=== PATIENT | female | born 1980 | race African-American/Black ===

== ENCOUNTER 2016-12-25 18:35 | Inpatient (IN) | payer OTHER ==
[~2016-12-25] VITALS: Ht 160 cm; Wt 102.1 kg
[~2016-12-25 18:35] MED LIST: GEODON60 MG PO; GEODON80 MG PD; GEODON80 MG PO; LITHIUM CARBON300 M2 PO; LITHIUM CARBON300 MG PO; LITHIUM CARBON600 MG PD; LITHIUM CARBON600 MG PO; LITHOBID300 MG PO; ZIPRASIDONE HCL80 MG PO
[2016-12-25 19:31] LABS: ADD MIUA? YES; BILIRUBIN NEGATIVE; BLOOD NEGATIVE; COLOR YELLOW ((YELLOW)); GLUCOSE (STRIP) NEGATIVE; KETONES 5; LEUKOCYTES NEGATIVE; NITRITE NEGATIVE; PROTEIN (STRIP) >=500; UROBILINOGEN 0.2 MG/DL (0.2-1.0)
[2016-12-25 19:39] LABS: AMPHETAMINE NEGATIVE (500 ng/mL); BARBITURATES NEGATIVE (200 ng/mL); BENZODIAZEPINES NEGATIVE (150 ng/mL); COCAINE NEGATIVE (150 ng/mL); INTERNAL CONTROLS VALID? YES; METHADONE NEGATIVE (200 ng/mL); METHAMPHETAMINE NEGATIVE (500 ng/mL); OPIATES (MORPHINE) NEGATIVE (100 ng/mL); OXYCODONE NEGATIVE (100 ng/mL); PHENCYCLIDINE NEGATIVE (25 ng/mL); PROPOXYPHENE NEGATIVE (300 ng/mL); THC CANNABINOIDS NEGATIVE (50 ng/mL); TRICYCLIC ANTIDEPRESSANTS NEGATIVE (300 ng/mL)
[2016-12-25 20:20] LABS: BACTERIA NONE SEEN /HPF; EPITHELIAL CELLS 2+ /HPF; MUCUS 3+ /LPF; RED BLOOD CELLS 0-5 /HPF (0-5); UCUL ADDED? NO; WHITE BLOOD CELLS 0-5 /HPF (0-5)
[2016-12-25 22:09] LABS: EOSINOPHIL (%) 0.5 % (0-5); EOSINOPHIL COUNT 0.1 K/uL (0-0.3); HEMATOCRIT 39.7 % (36.0-46.0); IMMATURE GRANULOCYTE (%) 0.3 % (0.0-0.7); INSTRUMENT ABS NEUTROPHIL CT 6.2 K/uL; LYMPHOCYTE COUNT 2.6 K/uL (1.0-2.8); MCH 28.8 PG (29.0-34.0); MCV 87.3 FL (83-99); MEAN PLAT.VOLUME 10.9 uM^3 (9.5-12.4); MONOCYTE (%) 8.1 % (3-12); MONOCYTE COUNT 0.8 K/uL (0-0.8); NEUTROPHIL (%) 64.4 % (45-76); NEUTROPHIL COUNT 6.2 K/uL (1.8-6.4); PLATELET COUNT 280 K/uL (156-360); RBC DIS.WIDTH-CV 12.6 % (11.8-14.6); RBC DIS.WIDTH-SD 40.5 % (39-53); RED BLOOD COUNT 4.55 M/uL (3.80-5.20); WHITE BLOOD COUNT 9.7 K/uL (4.1-10.2)
[2016-12-25 22:18] LABS: CHLORIDE 107 mEq/L (99-109); POTASSIUM 3.6 mEq/L (3.7-5.4); SODIUM 140 mEq/L (136-147)
[2016-12-25 22:20] LABS: GLUCOSE 155 mg/dL (70-99)
[2016-12-25 22:21] LABS: ANION GAP 11 MEQ/L (2-14)
[2016-12-25 22:22] LABS: TOTAL BILIRUBIN 0.3 mg/dL (0.0-1.0)
[2016-12-25 22:23] LABS: SERUM ETHYL ALCOHOL < 10 mg/dL
[2016-12-25 22:24] LABS: ALKALINE PHOSPHATASE 65 IU/L (3-129); GFR ESTIMATE (CALCULATED) > 59 mL/min/
[2016-12-25 22:26] LABS: UREA NITROGEN (BUN) 14 mg/dL (9-23)
[2016-12-25 22:27] LABS: SALICYLATE < 5.0 MG/DL (15-30)
[2016-12-25 22:33] LABS: QUANTITATIVE HCG < 4.0 MIU/ML
[2016-12-26 05:55] VITALS: BP 134/88
[2016-12-26 08:01] VITALS: BP 133/67
[2016-12-26 15:49] VITALS: BP 157/80
[2016-12-26 19:15] VITALS: BP 127/76
[2016-12-27 07:34] VITALS: BP 142/74
[2016-12-27 15:36] VITALS: BP 129/75
== END 2016-12-27 18:34 | disposition short-term general hospital (02) | DRG 885 ==
LOC: EME 18:35 → EDOF 12-26 04:31 → 1WEST 12-26 04:31
PROVIDERS: Emergency Medicine
DX: F31.2 Bipolar disorder, current episode manic severe with psychotic features (principal); Z91.14 Patient's other noncompliance with medication regimen; E66.9 Obesity, unspecified; Z68.39 Body mass index [BMI] 39.0-39.9, adult; R47.81 Slurred speech
CPT/HCPCS: 80053; 81003; 84702; 85025; 90837; 99281; 99285; G0480; J1630; J2060; J7030

== ENCOUNTER 2017-01-05 20:01 | Inpatient (IN) | payer OTHER ==
[~2017-01-05] VITALS: Ht 180.3 cm; Wt 57.0 kg
[2017-01-05 21:01] LABS: HEMATOCRIT 42.7 % (36.0-46.0); MCH 28.9 PG (29.0-34.0); MCHC 32.8 G/DL (30.0-36.0); MEAN PLAT.VOLUME 11.2 uM^3 (9.5-12.4); PLATELET COUNT 263 K/uL (156-360); RBC DIS.WIDTH-CV 12.7 % (11.8-14.6); RBC DIS.WIDTH-SD 41.1 % (39-53); RED BLOOD COUNT 4.85 M/uL (3.80-5.20); WHITE BLOOD COUNT 11.2 K/uL (4.1-10.2)
[2017-01-05 21:14] LABS: CHLORIDE 104 mEq/L (99-109); POTASSIUM 4.1 mEq/L (3.7-5.4); SODIUM 139 mEq/L (136-147)
[2017-01-05 21:16] LABS: GLUCOSE 162 mg/dL (70-99)
[2017-01-05 21:17] LABS: ANION GAP 14 MEQ/L (2-14)
[2017-01-05 21:18] LABS: TOTAL BILIRUBIN 0.3 mg/dL (0.0-1.0)
[2017-01-05 21:19] LABS: SERUM ETHYL ALCOHOL < 10 mg/dL
[2017-01-05 21:20] LABS: ALKALINE PHOSPHATASE 62 IU/L (3-129); GFR ESTIMATE (CALCULATED) > 59 mL/min/
[2017-01-05 21:21] LABS: UREA NITROGEN (BUN) 18 mg/dL (9-23)
[2017-01-05 22:26] VITALS: BP 169/76
[2017-01-06 07:42] VITALS: BP 139/87
[2017-01-06] MEDS ORDERED: LITHIUM CARBON300 M2 PO (11:14)
[2017-01-06 15:21] VITALS: BP 139/81
== END 2017-01-06 18:07 | DRG 885 ==
LOC: EME → EDBD 20:01 → EME 20:01 → EDOF 21:25 → 1WEST 21:25
PROVIDERS: Emergency Medicine
DX: F31.2 Bipolar disorder, current episode manic severe with psychotic features (principal); F20.9 Schizophrenia, unspecified
CPT/HCPCS: 80053; 80178; 81003; 85027; 90837; 97165 GO; 99281; 99285; G0480